=== PATIENT | female | born 1980 | race Caucasian/White ===

== ENCOUNTER → 2016-12-21 | Outpatient (CLI) | payer BC ==
--- NOTE | 2016-12-21 13:52 | EST ---
DATE OF SERVICE: 12/21/2016 TYPE OF REPORT: RONI CARDIOLITE STRESS TEST INDICATION: Chest pain. BASELINE HEART RATE: 73 BASELINE BLOOD PRESSURE: 123/72 MAXIMUM HEART RATE: 170 MAXIMUM BLOOD PRESSURE: 142/73 85% MPHR: 157 100% MPHR 185: METS: 11.7 MAXIMUM STAGE REACHED: 4 TOTAL EXERCISE TIME: 10:00 Baseline EKG revealed a normal sinus rhythm without significant ST-T changes. Patient walked on standard Roni protocol for 10 minutes, achieved a maximum heart rate of 170 beats per minute, developed fatigue and shortness of breath but did not have any angina or arrhythmia. EKG did not reveal any ST segment changes to indicate ischemia. This is a negative stress test with good exercise capacity. FINAL IMPRESSION: 1. Good exercise capacity. 2. Negative stress test by EKG. 3, Patient did not have an angina or arrhythmia. MARGOTH
== END | disposition home or self-care (01) ==
LOC: RADNMMAIN 10:42
PROVIDERS: ATTEND Family Medicine
DX: R07.9 Chest pain, unspecified (principal)
CPT/HCPCS: 93017

== ENCOUNTER → 2019-07-18 | Outpatient (CLI) | payer BC ==
--- NOTE | 2019-07-19 10:07 | MM ---
Reason for exam: screening (asymptomatic). Baseline mammogram. Physical Findings: Nurse did not find any significant physical abnormalities on exam. MG 3D Screening Mammo W/Cad Bilateral CC, MLO, and XCCL view(s) were taken. The breast tissue is extremely dense which could obscure a lesion on mammography. No suspicious abnormality. These results were verbally communicated with the patient and result sheet given to the patient on 07/18/19. ASSESSMENT: Negative, BI-RAD 1 RECOMMENDATION: Routine screening mammogram of both breasts in 1 year.
== END | disposition home or self-care (01) ==
LOC: RADMAMWWP 15:24
PROVIDERS: ATTEND Obstetrics & Gynecology
DX: Z12.31 Encounter for screening mammogram for malignant neoplasm of breast (principal)
CPT/HCPCS: 77063; 77067

== ENCOUNTER 2021-03-05 19:07 | Emergency (ER) | payer BC ==
[2021-03-05 20:13] VITALS: BP 122/85; PULSE 80; RESP 18; TEMP 100.4
[2021-03-05] MEDS ORDERED: KETOROLAC 15 MG/ML 1 ML VIAL IM STA (23:02)
--- NOTE | 2021-03-05 23:03 | ED ---
General Adult HPI - General Chief complaint: Fever Stated complaint: covid+/cough/fever/headache Time Seen by Provider: 03/05/21 22:23 Source: patient Mode of arrival: ambulatory Limitations: no limitations - History of Present Illness Initial comments: 41-year-old female patient presents to the emergency department today for evaluation of headache, fever, body aches, chills. States she tested positive for Covid today. Symptoms started 4 days ago. States she is unable to get her fever under control despite use of Tylenol and Motrin. States she is eating and drinking without difficulty. Denies vomiting or diarrhea. Denies any chronic medical conditions. Denies use of any medications. Patient denies any recent rash, cough, shortness of breath, chest pain, abdominal pain, constipation, back pain, numbness, tingling, dizziness, hematuria, dysuria, urinary urgency, urinary frequency, headache, visual changes, or any other complaints. - Related Data Previous Rx's Medication Instructions Recorded Dexamethasone 6 mg PO DAILY #10 tablet 03/05/21 Allergies Allergy/AdvReac Type Severity Reaction Status Date / Time No Known Allergies Allergy Verified 03/05/21 20:09 Review of Systems ROS Statement: Those systems with pertinent positive or pertinent negative responses have been documented in the HPI. ROS Other: All systems not noted in ROS Statement are negative. Past Medical History Past Medical History: No Reported History History of Any Multi-Drug Resistant Organisms: None Reported Past Surgical History: No Surgical Hx Reported Past Psychological History: No Psychological Hx Reported Smoking Status: Never smoker Past Alcohol Use History: Occasional Past Drug Use History: None Reported General Exam Limitations: no limitations General appearance: alert, in no apparent distress, other (This is a well- developed, well-nourished adult female patient in no acute distress.) Eye exam: Present: normal appearance, PERRL, EOMI. Absent: scleral icterus, conjunctival injection, periorbital swelling ENT exam: Present: normal exam, normal oropharynx, mucous membranes moist Respiratory exam: Present: normal lung sounds bilaterally. Absent: respiratory distress, wheezes, rales, rhonchi, stridor Cardiovascular Exam: Present: regular rate, normal rhythm, normal heart sounds. Absent: systolic murmur, diastolic murmur, rubs, gallop, clicks Neurological exam: Present: alert, oriented X3, CN II-XII intact Psychiatric exam: Present: normal affect, normal mood Skin exam: Present: warm, dry, intact, normal color. Absent: rash Course Vital Signs 03/05/21 20:10 Temperature 100.4 F H Pulse Rate 80 Respiratory 18 Rate Blood Pressure 122/85 O2 Sat by Pulse 100 Oximetry Medical Decision Making - Medical Decision Making 41-year-old female patient presents to the emergency department today for evaluation of fever, body aches, weakness, headache. She tested positive for Covid. She does not meet criteria to receive the monoclonal antibody infusion. We did discuss supportive care and symptomatic management. She is instructed to follow-up with her primary care physician for recheck in 1-2 days. She was given prescription for dexamethasone in case her breathing and cough get worse. Return parameters were discussed in detail. She verbalizes understanding and agrees with this plan. My attending is Dr. Hodgson. Disposition Clinical Impression: COVID-19 Disposition: HOME SELF-CARE Condition: Good Instructions (If sedation given, give patient instructions): Coronavirus Disease 2019 (COVID-19), Fever in Adults (ED) Additional Instructions: Continue Tylenol Motrin for fever control. Increase fluids. Rest. Start steroid if your cough and breathing gets worse. Follow-up with the primary care physician for recheck in 1-2 days. Return for any new, worsening, or concerning symptoms. Prescriptions: Dexamethasone 6 mg PO DAILY #10 tablet Is patient prescribed a controlled substance at d/c from ED?: No Referrals: García Linton MD [Primary Care Provider] - 1-2 days Time of Disposition: 23:03
== END 2021-03-05 23:46 | disposition home or self-care (01) ==
LOC: EC 19:07
DX: U07.1 COVID-19 (principal)
CPT/HCPCS: 99283; 96372; J1885

== ENCOUNTER → 2022-03-19 | Outpatient (CLI) | payer BC ==
--- NOTE | 2022-03-20 07:43 | MM ---
Reason for Exam: Screening (asymptomatic). Last mammogram was performed 2 year(s) and 8 month(s) ago. Patient History: Menarche at age 14. First Full-Term at age 30. Premenopausal. Last menstrual period: 03/11/2022 Risk Values: Sonia 5 year model risk: 0.7%. NCI Lifetime model risk: 11.0%. Prior Study Comparison: 07/18/2019 Bilateral Screening Mammogram, [facility]. Tissue Density: The breast tissue is heterogeneously dense. This may lower the sensitivity of mammography. Findings: Analyzed By CAD. There is no suspicious group of microcalcifications or new suspicious mass in either breast. Overall Assessment: Benign, BI-RAD 2 Management: Screening Mammogram of both breasts in 1 year. A clinical breast exam by your physician is recommended on an annual basis and results should be correlated with mammographic findings. Electronically signed and approved by: Pablo Stephens M.D. Radiologis
== END | disposition home or self-care (01) ==
LOC: RADMAMWWP 15:15
PROVIDERS: ATTEND Obstetrics & Gynecology
DX: Z12.31 Encounter for screening mammogram for malignant neoplasm of breast (principal)
CPT/HCPCS: 77063; 77067

== ENCOUNTER → 2023-04-15 | Outpatient (CLI) | payer BC ==
--- NOTE | 2023-04-19 19:29 | MM ---
Reason for Exam: Screening (asymptomatic). Last mammogram was performed 1 year(s) and 1 month(s) ago. Patient History: Menarche at age 14. First Full-Term at age 30. Premenopausal. Risk Values: Sonia 5 year model risk: 0.7%. NCI Lifetime model risk: 10.9%. Prior Study Comparison: 07/18/2019 Bilateral Screening Mammogram, [facility]. 03/19/2022 Bilateral MG 3D screening mammo w/cad, [facility]. Tissue Density: There are scattered fibroglandular densities. Findings: Analyzed By CAD. There is a new suspicious spiculated mass within the upper outer quadrant of the right breast. Further appropriate workup and management advised. On the left side, a microclip with adjacent low density nodularity remains unchanged. There is no suspicious group of microcalcifications or new suspicious mass in either breast. Overall Assessment: Incomplete: need additional imaging evaluation, BI-RAD 0 Management: Special View Mammogram of the right breast. Diagnostic Breast Ultrasound of the right breast. For the very suspicious new spiculated mass upper outer quadrant right breast. [facility] will attempt to contact patient to return for supplemental views and ultrasound if indicated. Electronically signed and approved by: John Coates M.D. Radiologist
== END | disposition home or self-care (01) ==
LOC: RADMAMWWP 16:52
PROVIDERS: ATTEND Obstetrics & Gynecology
DX: Z12.31 Encounter for screening mammogram for malignant neoplasm of breast (principal)
CPT/HCPCS: 77063; 77067

== ENCOUNTER → 2023-04-28 | Outpatient (CLI) | payer BC ==
--- NOTE | 2023-04-28 09:35 | MM ---
Reason for Exam: Additional evaluation requested from abnormal screening. Last screening mammogram was performed less than 1 month ago. Patient History: Menarche at age 14. First Full-Term at age 30. Premenopausal. Risk Values: Sonia 5 year model risk: 0.7%. NCI Lifetime model risk: 10.9%. Tissue Density: Right: The breast tissue is heterogeneously dense. This may lower the sensitivity of mammography. Findings: Analyzed By CAD. No persistent abnormalities seen. Ultrasound recommended. Overall Assessment: Incomplete: need additional imaging evaluation, BI-RAD 0 Management: Diagnostic Breast Ultrasound of the right breast. . Results were given to the patient verbally at the time of exam. Patient should continue monthly self-breast exams. A clinical breast exam by your physician is recommended on an annual basis. This exam should not preclude additional follow-up of suspicious palpable abnormalities. Note on Sonia scores and lifetime risk: 1. A Sonia score greater than 3% is considered moderate risk. If this is the case, consider specialist referral to assess eligibility for a risk reducing agent. 2. If overall lifetime risk for the development of breast cancer is 20% or higher, the patient may qualify for future screening with alternating mammogram and breast MRI. Electronically signed and approved by: Pablo Stephens M.D. Radiologis
--- NOTE | 2023-04-28 09:57 | USB ---
Reason for Exam: Additional evaluation requested from abnormal screening. Patient History: Menarche at age 14. First Full-Term at age 30. Premenopausal. Risk Values: Sonia 5 year model risk: 0.7%. NCI Lifetime model risk: 10.9%. Technique: Method: Targeted. Prior Study Comparison: 07/18/2019 Bilateral Screening Mammogram, [facility]. 03/19/2022 Bilateral MG 3D screening mammo w/cad, [facility]. 04/15/2023 Bilateral MG 3D screening mammo w/cad, [facility]. Findings: The upper outer quadrant of the right breast, the axilla of the right breast and the retroareolar of the right breast were scanned. No solid or cystic masses are identified.. Overall Assessment: Negative, BI-RAD 1 Management: Screening Mammogram of both breasts in 1 year. A clinical breast exam by your physician is recommended on an annual basis and results should be correlated with mammographic findings. This exam should not preclude additional follow-up of suspicious palpable abnormalities. Results were given to the patient verbally at the time of exam. Electronically signed and approved by: Pablo Stephens M.D. Radiologis
== END | disposition home or self-care (01) ==
LOC: RADMAMWWP 08:58
PROVIDERS: ATTEND Obstetrics & Gynecology
DX: R92.331 Mammographic heterogeneous density, right breast (principal)
CPT/HCPCS: 77061; 77065

== ENCOUNTER → 2024-08-21 | Outpatient (CLI) | payer BC ==
--- NOTE | 2024-08-22 06:32 | MM ---
Reason for Exam: Screening (asymptomatic). Last mammogram was performed 1 year(s) and 4 month(s) ago. Patient History: Menarche at age 14. First Full-Term at age 30. Premenopausal. Patient used Hormonal Contraceptives for 10 years. Last menstrual period: 08/13/2024 Risk Values: Sonia 5 year model risk: 0.8%. NCI Lifetime model risk: 10.8%. Prior Study Comparison: 03/19/2022 Bilateral MG 3D screening mammo w/cad, [facility]. 04/15/2023 Bilateral MG 3D screening mammo w/cad, [facility]. 04/28/2023 Right MG 3D work up w/cad RT, [facility]. Tissue Density: The breasts are extremely dense, which lowers the sensitivity of mammography. Findings: Analyzed By CAD. There is increasing group of indistinct calcifications posterior slight medial aspect that warrant further workup. Overall Assessment: Incomplete: need additional imaging evaluation, BI-RAD 0 Management: Special View Mammogram of the left breast. Return for spot magnification and 3-D true lateral views left breast. Patient should continue monthly self-breast exams. A clinical breast exam by your physician is recommended on an annual basis. This exam should not preclude additional follow-up of suspicious palpable abnormalities. Note on Sonia scores and lifetime risk: 1. A Sonia score greater than 3% is considered moderate risk. If this is the case, consider specialist referral to assess eligibility for a risk reducing agent. 2. If overall lifetime risk for the development of breast cancer is 20% or higher, the patient may qualify for future screening with alternating mammogram and breast MRI. [facility], , 08/22/2024 6:30 AM. Electronically signed and approved by: Alcides Griffith M.D.
== END | disposition home or self-care (01) ==
LOC: RADMAMWWP 14:43
PROVIDERS: ATTEND Obstetrics & Gynecology
DX: Z12.31 Encounter for screening mammogram for malignant neoplasm of breast (principal); R92.343 Mammographic extreme density, bilateral breasts; Z92.0 Personal history of contraception
CPT/HCPCS: 77063; 77067

== ENCOUNTER → 2024-08-24 | Outpatient (CLI) | payer BC ==
--- NOTE | 2024-08-24 08:54 | MM ---
Reason for Exam: Additional evaluation requested from abnormal screening. Last screening mammogram was performed less than 1 month ago. Patient History: Menarche at age 14. First Full-Term at age 30. Premenopausal. Patient used Hormonal Contraceptives for 10 years. Risk Values: Sonia 5 year model risk: 0.8%. NCI Lifetime model risk: 10.8%. Prior Study Comparison: 04/15/2023 Bilateral MG 3D screening mammo w/cad, [facility]. 04/28/2023 Right MG 3D work up w/cad RT, [facility]. 08/21/2024 Bilateral MG 3D screening mammo w/cad, [facility]. Tissue Density: Left: The breasts are heterogeneously dense, which may obscure small masses. Findings: Analyzed By CAD. There is an indeterminate group of microcalcifications upper inner left breast approximately 3.7 cm from the nipple. Stereotactic core biopsy is recommended. Overall Assessment: Suspicious, BI-RAD 4 Management: Stereotactic Core Biopsy of the left breast. . Results were given to the patient verbally at the time of exam. Patient should continue monthly self-breast exams. A clinical breast exam by your physician is recommended on an annual basis. This exam should not preclude additional follow-up of suspicious palpable abnormalities. Note on Sonia scores and lifetime risk: 1. A Sonia score greater than 3% is considered moderate risk. If this is the case, consider specialist referral to assess eligibility for a risk reducing agent. 2. If overall lifetime risk for the development of breast cancer is 20% or higher, the patient may qualify for future screening with alternating mammogram and breast MRI. [facility], , 08/24/2024 8:52 AM. Electronically signed and approved by: Pablo Stephens M.D. Radiologis
== END | disposition home or self-care (01) ==
LOC: RADMAMWWP 08:32
PROVIDERS: ATTEND Obstetrics & Gynecology
DX: R92.8 Other abnormal and inconclusive findings on diagnostic imaging of breast (principal); R92.332 Mammographic heterogeneous density, left breast; R92.0 Mammographic microcalcification found on diagnostic imaging of breast; Z92.0 Personal history of contraception
CPT/HCPCS: 77061; 77065

== ENCOUNTER → 2024-08-31 | Outpatient (CLI) | payer BC ==
[2024-08-31 07:55] VITALS: BP 125/88; PULSE 74; RESP 16; TEMP 98.1
== END ==
LOC: WWCWWP 07:14
PROVIDERS: ATTEND Surgery
DX: Z53.9 Procedure and treatment not carried out, unspecified reason (principal)

== ENCOUNTER → 2024-08-31 | Day surgery (SDC) | payer BC ==
[~2024-08-31] MED LIST: ALPRAZolam 0.5 MG TAB PO PRN
[2024-08-31 07:29] VITALS: TEMP 98.1
--- NOTE | 2024-08-31 07:58 | P.GSCN ---
History of Present Illness Consult date: 08/31/24 Reason for Consult: Abnormal left breast mammogram Requesting physician: Luba Maria History of present illness: Arin is a 44-year-old female seen in consultation for Dr. Maria, and Dr. García Linton regarding an abnormal left breast mammogram. She underwent a bilateral screening mammogram on 08-21-2024. This revealed the breast to be extremely dense but an increasing group of indicis think calcifications in the posterior slight medial aspect of the left breast were identified. A left breast diagnostic mammogram was performed on 08-24-2024. This revealed an indeterminate group of microcalcifications in the upper inner left breast approximately 3.7 cm from the nipple and stereotactic core biopsy was recommended. The mammogram was personally reviewed and interpreted and the microcalcifications appear to be in the upper inner aspect of the breast. This was found on a routine mammogram. She does not complain of any new lumps masses or nodules of concern in either breast. She has never had any surgery on her breast. She is not complaining of any nipple discharge or skin changes. She has not had any recent infection or trauma of the breast. She got her firt baseline mammogram at 41. Caffeine: 1 cup/day nicotine: none chocolate: occasional BCP: used BCP 10 years and is on it now, to manage her periods hormones: testosterone cream Family History: maternal grandmother: cancer ? type Hormonal History: menarche: 15 , breast fed: yes, age at first : 29 periods regular heavy on BCP to try to manage Surgical History: lasic eye surgery Medical History: depression Social History: nicotine: none alcohol: 1 time a week a glass wine or beer drugs: none Review of Systems - Constitutional Denies fever, Denies weight loss - EENT Eyes: denies blurred vision Ears: deny: decreased hearing, tinnitus Ears, nose, mouth and throat: Denies dysphagia - Breasts bilateral: as per HPI - Cardiovascular Denies chest pain, Denies shortness of breath - Respiratory Denies cough, Denies 7 - Gastrointestinal Reports as per HPI - Genitourinary Genitourinary: Denies dysuria, Denies hematuria Menstruation: Reports as per HPI - Musculoskeletal Reports as per HPI - Integumentary Denies rash, Denies unusual bruising - Neurological Denies headaches, Denies syncope - Psychiatric Reports as per HPI, Reports depression - Endocrine Reports as per HPI, Reports weight change - Hematologic/Lymphatic Denies easy bleeding, Denies easy bruising - Allergic/Immunologic Reports as per HPI Past Medical History Past Medical History: No Reported History History of Any Multi-Drug Resistant Organisms: None Reported Past Surgical History: No Surgical Hx Reported Additional Past Anesthesia/Blood Transfusion Reaction / Comm: NA Past Psychological History: Anxiety, Depression Smoking Status: Never smoker Past Alcohol Use History: Occasional Past Drug Use History: None Reported Medications and Allergies Home Medications Medication Instructions Recorded Confirmed Type Escitalopram [Lexapro] 10 mg PO DAILY 08/24/24 08/31/24 History Testosterone [Androgel 1.62%] 1 pump TRANSDERM DAILY 08/24/24 08/31/24 History Allergies Allergy/AdvReac Type Severity Reaction Status Date / Time No Known Allergies Allergy Verified 08/31/24 07:23 Surgical - Exam Vital Signs Temp Pulse Resp BP 98.1 F 74 16 125/88 08/31/24 07:23 08/31/24 07:23 08/31/24 07:23 08/31/24 07:23 - General no distress - Eyes normal ocular movement - Neck trachea midline - Respiratory normal respiratory effort, clear to auscultation - Cardiovascular Rhythm: regular Heart Sounds: normal: S1, S2 - Abdomen Abdomen: soft, non tender, no guarding, no rigid, no rebound - Integumentary normal turgor - Neurologic no disoriented, no combative - Musculoskeletal normal gait - Psychiatric oriented to time, oriented to person, oriented to place, speech is normal, memory intact Breast Exam: BRA: 34A Inspection: Bilateral grade 2 ptosis Palpation: Right breast: Multi positional exam no dominant masses or nodules of concern, fibrocystic changes Right axilla: No adenopathy of concern Left breast: Multi positional exam no dominant masses or nodules of concern, fibrocystic changes Left axilla: No adenopathy of concern Results Microcalcifications of concern left breast on diagnostic mammogram of 08-24-2024 upper inner quadrant Assessment and Plan Assessment: Impression: Microcalcifications of concern left breast upper inner quadrant on mammogram of 08-24-2024 Fibrocystic breast changes Plan: Patient will stop hormone treatment at this time until diagnosis is obtained Stereotactic core biopsy left breast Risk and benefits of procedure discussed with the patient. Risk include but are not limited to bleeding, infection, reaction to the anesthetic. She understands if adequate tissue acquisition is not obtained then an open needle localization and biopsy may be recommended. Consent: I have discussed the risks, benefits and alternative therapies for the above-mentioned procedure and for both sedation/analgesia as well as necessary blood product administration, if indicated, as they pertain to this patient. The patient has indicated understanding and acceptance of the risks and procedures discussed. CC: Dr. García Linton, Dr. Maria
[2024-08-31 09:01] VITALS: BP 122/85; PULSE 63; RESP 14
--- NOTE | 2024-09-06 09:07 | MM ---
Risk Values: Sonia 5 year model risk: 0.8%. NCI Lifetime model risk: 10.8%. Prior Study Comparison: 04/28/2023 Right MG 3D work up w/cad RT, [facility]. 08/21/2024 Bilateral MG 3D screening mammo w/cad, [facility]. 08/24/2024 Left MG 3D work up w/cad LT, [facility]. Pathology Description: Location: upper inner quadrant. Marker Left Behind. Specimen Radiograph. Approach: CC FA Needle Type: Eviva Cores: 13 Skin Nicks: 1 Gauge: 9 The correct site was marked. A time out was performed. Following informed consent the patient was brought to the stereotactic core biopsy room. A pricing/signage team member film was obtained via an cc approach to identify the lesion in the left breast. The lesion is located at the upper inner position. The lesion was then targeted. The breast was prepped using Chlorhexidine. 20 cc of 1% lidocaine were used to anesthetize the area of concern. A 9 gauge vacuum-assisted core rotating biopsy needle was driven to the correct coordinates. A prefire film was obtained, needle was noted to be in the correct location.. The needle was driven to the correct coordinates. A post fire film was obtained. The needle was noted to be in the correct location. 12 core biopsies were obtained. A specimen radiograph was done. The specimen radiograph revealed the microcalcifications of concern had been adequately sampled. The needle was removed leaving the sheath in place. A secure marked top hat clip was inserted into the biopsy cavity through the sheath. Pressure was applied at the biopsy site for hemostasis. Steri-Strips were applied to the access site. The specimens were sent to the laboratory for pathologic analysis. The patient tolerated the procedure in stable condition and will follow-up with Dr. Linton. She was discharged in good condition with verbal and written instructions. Post procedure mammogram shows the clip to be in the correct location. [facility], , 08/31/2024 10:27 AM. Pathology Results: Result: Benign, Fibrocystic change. Pathology and radiology were reviewed. Findings are concordant. LEFT BREAST, STEREOTACTIC NEEDLE CORE BIOPSY: Fibrocystic change having columnar cell change and calcification. Overall Assessment: Benign Management: Diagnostic Mammogram of the left breast in 6 months. Electronically signed and approved by: Emiliana Villa M.D.
== END | disposition home or self-care (01) ==
LOC: RADMAMWWP 07:13
PROVIDERS: ATTEND Surgery
DX: R92.8 Other abnormal and inconclusive findings on diagnostic imaging of breast (principal); F32.A Depression, unspecified; F41.9 Anxiety disorder, unspecified; Z79.899 Other long term (current) drug therapy
CPT/HCPCS: 88305; 19081; A4648; J2003

== ENCOUNTER → 2024-09-08 | Outpatient (CLI) | payer BC ==
--- NOTE | 2024-09-08 12:22 | P.PN ---
Subjective Progress Note Date: 09/08/24 Principal diagnosis: fibrocystic breast changes 08/31/24 Reason for Consult: Abnormal left breast mammogram Requesting physician: Luba Maria History of present illness: Arin is a 44-year-old female seen in consultation for Dr. Maria, and Dr. García Linton regarding an abnormal left breast mammogram. She underwent a bilateral screening mammogram on 08-21-2024. This revealed the breast to be extremely dense but an increasing group of indicis think calcifications in the posterior slight medial aspect of the left breast were identified. A left breast diagnostic mammogram was performed on 08-24-2024. This revealed an indeterminate group of microcalcifications in the upper inner left breast approximately 3.7 cm from the nipple and stereotactic core biopsy was recommended. The mammogram was personally reviewed and interpreted and the microcalcifications appear to be in the upper inner aspect of the breast. This was found on a routine mammogram. She does not complain of any new lumps masses or nodules of concern in either breast. She has never had any surgery on her breast. She is not complaining of any nipple discharge or skin changes. She has not had any recent infection or trauma of the breast. She got her firt baseline mammogram at 41. Patient status post stero biopsy of the left breast on 08-31-24/ benign concordant. She tolerated the procedure without difficulty. Pathology results were discussed and reviewed with the patient. Pathology revealed fibrocystic change having columnar cell change and calcification. Caffeine: 1 cup/day nicotine: none chocolate: occasional BCP: used BCP 10 years and is on it now, to manage her periods hormones: testosterone cream Family History: maternal grandmother: cancer ? type Hormonal History: menarche: 15 , breast fed: yes, age at first : 29 periods regular heavy on BCP to try to manage Surgical History: lasic eye surgery Medical History: depression Social History: nicotine: none alcohol: 1 time a week a glass wine or beer drugs: none Review of Systems - Constitutional Denies fever, Denies weight loss - EENT Eyes: denies blurred vision Ears: deny: decreased hearing, tinnitus Ears, nose, mouth and throat: Denies dysphagia - Breasts bilateral: as per HPI - Cardiovascular Denies chest pain, Denies shortness of breath - Respiratory Denies cough, Denies 7 - Gastrointestinal Reports as per HPI - Genitourinary Genitourinary: Denies dysuria, Denies hematuria Menstruation: Reports as per HPI - Musculoskeletal Reports as per HPI - Integumentary Denies rash, Denies unusual bruising - Neurological Denies headaches, Denies syncope - Psychiatric Reports as per HPI, Reports depression - Endocrine Reports as per HPI, Reports weight change - Hematologic/Lymphatic Denies easy bleeding, Denies easy bruising - Allergic/Immunologic Reports as per HPI Past Medical History Past Medical History: No Reported History History of Any Multi-Drug Resistant Organisms: None Reported Past Surgical History: No Surgical Hx Reported Additional Past Anesthesia/Blood Transfusion Reaction / Comm: NA Past Psychological History: Anxiety, Depression Smoking Status: Never smoker Past Alcohol Use History: Occasional Past Drug Use History: None Reported Medications and Allergies Home Medications Medication Instructions Recorded Confirmed Type Escitalopram [Lexapro] 10 mg PO DAILY 08/24/24 08/31/24 History Testosterone [Androgel 1.62%] 1 pump TRANSDERM DAILY 08/24/24 08/31/24 History Allergies Allergy/AdvReac Type Severity Reaction Status Date / Time No Known Allergies Allergy Verified 08/31/24 07:23 Objective - Constitutional General appearance: Present: cooperative - EENT Eyes: Present: EOMI ENT: Present: hearing grossly normal - Respiratory Respiratory: bilateral: CTA - Cardiovascular Rhythm: regular Heart sounds: normal: S1, S2 - Integumentary Integumentary Comment(s): Biopsy site left breast clean and dry no evidence of infection or hematoma Assessment and Plan Assessment: Impression: Left breast stereotactic core biopsy benign concordant on 08-31-2024 Plan: Left breast mammogram in 6 months with physician exam at that time Patient to follow-up sooner any questions or concerns CC: Dr. García Linton, Dr. Luba Maria
[2024-09-08 12:34] VITALS: BP 125/75; PULSE 99; RESP 17; TEMP 98.9
== END ==
LOC: WWCWWP 11:16
PROVIDERS: ATTEND Surgery
DX: N60.19 Diffuse cystic mastopathy of unspecified breast (principal); R92.8 Other abnormal and inconclusive findings on diagnostic imaging of breast